=== PATIENT | male | born 2000 | race Caucasian/White ===

== ENCOUNTER 2023-07-26 15:58 | Inpatient (IN) | payer OTHER, SELFPAY ==
--- NOTE | 2023-07-26 16:16 | MHC.CARE ---
[facility] called reporting they are sending Marcelino to [facility] on a section 12. Patient was assessed and meets inpatient level of care currently, patient has been harming self via cutting with a razor, he has been significantly depressed and stated ?I want to cut my heart out of my body?. Patient has a history of depression and trauma. [facility] will send assessment to CARE team when completed.
[2023-07-26 16:22] VITALS: BP 126/76; PULSE 87; RESP 18; TEMP 37.1; O2SAT 96; BMI 20.9
[2023-07-26 16:31] VITALS: BP 126/76; PULSE 87; RESP 18; TEMP 37.1; O2SAT 96
[2023-07-26 16:42] LABS: Amphetamine Screen Urine Not Detected (Not Detect); Barbiturates, Urine Not Detected (Not Detect); Benzodiazepines Screen Urine Not Detected (Not Detect); Buprenorphine Scr Not Detected (Not Detect); Cannabinoid Screen Urine Not Detected (Not Detect); Cocaine Screen Urine Not Detected (Not Detect); Fentanyl, urine Not Detected (Not Detect); Methadone Screen, Urine Not Detected (Not Detect); Opiate Screen Urine Not Detected (Not Detect); Oxycodone Screen Urine Not Detected (Not Detect); Phencyclidine Screen Urine Not Detected (Not Detect)
[2023-07-26 16:56] LABS: Appearance Urine Clear; Color Urine Yellow; Glucose Urine UA Negative (Negative); Leukocyte Esterase Urine Negative (Negative); Nitrite Urine Negative (Negative); PH 6.5 (5.0-9.0); Specific Gravity - Urine 1.015 (1.005-1.025); Urine Blood Negative (Negative); Urine Ketones Negative (Negative); Urine Protein Trace mg/dL (Neg-Trace)
[2023-07-26 17:29] LABS: MANUAL DIFF FLAG NO
[2023-07-26 17:30] LABS: Basophils Percent Auto 0.4 % (0-2); Eosinophils Absolute Auto 0.2 X10*3/uL (0.0-0.4); Eosinophils Percent Auto 1.8 % (0-4); Hematocrit 43.4 % (42.0-52.0); Hemoglobin 15.2 g/dl (14.0-18.0); Imm Gran Abs Auto 0.06 X10*3/uL (0.00-0.03); Imm Gran Pct Auto 0.6 % (0.0-0.4); Lymphocytes Absolute Auto 1.8 X10*3/uL (1.2-4.9); Lymphocytes Percent Auto 19.2 % (20-40); Mean Corpuscular Hemoglobin 29.7 pg (27.0-33.0); Mean Corpuscular Volume 84.8 fL (80.0-98.0); Mean Platelet Volume 10.7 fL (9.4-12.4); Monocytes Absolute Auto 0.6 X10*3/uL (0.1-1.2); Monocytes Percent Auto 6.4 % (2-11); Neutrophils Absolute Auto 6.6 x10*3/uL (2.0-8.3); Neutrophils Percent Auto 71.6 % (45-73); Platelet Count 211 X10*3/uL (160-400); Red Blood Count 5.12 X10*6/uL (4.60-5.80); Red Cell Distribution Width 12.1 % (11.0-16.0); White Blood Count 9.3 X10*3/uL (4.8-10.8)
[2023-07-26 17:43] LABS: COVID-19 Test Negative (Negative); IDNOW Serial# 152EDE1D
[2023-07-26 18:06] LABS: Alanine Aminotransferase 12 U/L (0-40); Albumin Level 3.8 g/dL (3.5-5.0); Alkaline Phosphatase 71 U/L (39-117); Anion Gap 10 (12-20); Aspartate Amino Transferase 11 U/L (5-37); Bilirubin Total 0.7 mg/dL (0.0-1.0); Blood Urea Nitrogen 10 mg/dL (9-16); Calcium 9.6 mg/dL (8.4-10.2); Carbon Dioxide 29 mmol/L (22-29); Chloride 106 mmol/L (96-108); Creatinine Clr Calc Pharmacy 134.3; Estimated Glomerular Filt Rate > 60; Ethanol < 10 mg/dL; Glucose Random 77 mg/dL (60-115); Potassium 4.3 mmol/L (3.3-5.1); Sodium 141 mmol/L (135-145); Total Protein 7.1 g/dL (6.5-8.0)
--- NOTE | 2023-07-26 18:09 | ED.PSYCH ---
HPI - Psych General Chief Complaint: Psychiatric Symptoms Stated Complaint: suicidal thoughts Time Seen by Provider: 07/26/23 16:42 Source: patient and RN notes reviewed Mode of arrival: ambulatory Limitations: no limitations History of Present Illness HPI Narrative: This is a 23-year-old male, with a history of bipolar disorder, who presents emergency department with complaints of intermittent suicidal ideations with plans to cut himself. Patient states that this afternoon he lacerated himself with a razor on his right arm. He denies any homicidal ideations. Patient denies auditory or visual hallucinations. States that he has been taking all his medications at home as directed. He states that he smokes marijuana, no other drug use. No alcohol use. He sees [facility] for counseling and psychiatric medications. He has not been psychiatrically admitted to a hospital as he states that he recently relocated from [place]. He states that he is feeling well, no physical complaints, no fevers, chills, chest pain, shortness of breath, abdominal pain, nausea, vomiting or diarrhea. No other complaints or concerns at this time. MD complaint: feels depressed Onset (ago): hour(s) History of same: No Relieving factors: none Exacerbating factors: none Associated psychiatric symptoms: depression and suicidal ideation Associated symptoms: denies other symptoms Treatments prior to arrival: none If self harm: admits thoughts of self harm, has acted on plan and self-inflicted trauma Related Data Home Medications ?Medication ?Instructions ?Recorded ?Confirmed paliperidone palmitate 234 mg/1.5 234 mg IM Q3W 07/26/23 07/26/23 mL intramuscular syringe (Invega Sustenna) Allergies Allergy/AdvReac Type Severity Reaction Status Date / Time No Known Allergies Allergy Verified 07/26/23 16:29 Review of Systems Review of Systems: Yes all other systems are reviewed and are negative Constitutional: Constitutional: Reports as per [facility] Past Medical History Attestation statement: The following information was validated with the patient. Social History Social History Alcohol intake: never Smoked in Last 30 Days: No Use of substances other than those prescribed or required for medical reasons: Yes Substance Use Type: Marijuana Substance Use Frequency: Occasionally Last Used Substance: Unknown Any prior treatment program specific to substance use: No Advance Directives: No Advance Directives Information Provided: No Physical Exam Vital Signs: Vital Signs: Last Vital Signs Temp 98.8 F 07/26/23 16:31 Pulse 87 07/26/23 16:31 Resp 18 07/26/23 16:31 BP 126/76 07/26/23 16:31 Pulse Ox 96 07/26/23 16:31 O2 Del Method Room Air 07/26/23 16:31 BMI result Body Mass Index 20.9 Const: General: cooperative, comfortable and no acute distress Orientation/consciousness: patient oriented x3 Limitations: no limitations HEENT: Head: Yes normal to inspection, Yes normocephalic and Yes atraumatic Ears: hearing grossly normal bilaterally General nose exam: Normal external nose present Face and sinus: Yes normal facial exam Mouth: Normal oral and palatal mucosa present, oropharynx normal and moist mucous membranes Throat: Yes posterior oropharynx normal Eyes: General: appearance normal, both eyes and all related structures Eyelids: Yes eyelids normal Conjunctivae: conjunctivae normal Sclerae: sclerae normal Pupils: Equal, round and reactive pupils present EOM: EOMs intact bilaterally Neck: Neck: Yes normal visual inspection, Yes full ROM and Yes no lymphadenopathy Lymphatic: no lymphadenopathy noted Chest: Chest palpation & inspection: normal inspection of the chest Resp: Effort & Inspection: normal respiratory effort and able to speak in complete sentences Auscultation: clear to auscultation bilaterally, no crackles, no rales, no rhonchi and no wheezes Cardio: Rate: regular rate Rhythm: regular rhythm Heart sounds: S1 normal heart sound present and S2 normal heart sound present GI: Inspection: Yes normal to inspection Skin: General skin exam: no rashes or lesions noted Trauma: no lacerations or abrasions Wounds: no wounds Neuro: General: patient oriented x3 and moves all extremities Cranial nerves: Yes Equal, round and reactive pupils present Extrem: Other: Superficial linear abrasions noted to right forearm, no bleeding, surrounding erythema or warmth. General: Yes normal to inspection Right upper extremity: normal to inspection Left upper extremity: normal to inspection Right lower extremity: normal to inspection Left lower extremity: normal to inspection Medications Administered Discontinued Medications Generic Name Dose Route Start Last Admin Trade Name Freq PRN Reason Stop Dose Admin Melatonin 3 mg 07/26/23 21:24 07/26/23 22:46 Melatonin 3 Mg Tablet PO 04/21/24 21:25 3 mg ONCE ONE Administration Medical Decision Making Medical Decision Making [facility] Narrative: This is a 23-year-old male, with a history of bipolar disorder, who presents emergency department with complaints of suicidal ideation and self-inflicted superficial lacerations noted to the right forearm. Patient states that he is struggled with his bipolar despite taking his medications. He states that he has had thoughts of suicidal ideations with plans of self-harm. On examination, patient avoids eye contact, he has superficial abrasions noted to the right forearm, no surrounding erythema, warmth, does not require any wound closure. Labs were performed, patient has no leukocytosis, stable H&H, chemistry within normal limits. Urine does not appear to be infected. Negative drug screen, negative COVID. Given suicidal ideations with self-inflicted superficial wounds to the right forearm, will obtain care pain consult. At this point, patient is medically cleared, physician observation initiated. Differential Diagnosis Differential Diagnoses: The differential diagnosis associated with the presentation includes Depression, anxiety, suicidal ideations, homicidal ideations. Admission/Observation Consideration of admission/observation: Escalation of care including admission/observation considered Escalation of care including admission/observation considered however given workup today not warranted at this time. Lab Data MDM Lab Attestation statement: I reviewed the patient's lab results. No leukocytosis, stable H&H, chemistry within normal limits, urine does not appear to be infected, urine drug screen negative. COVID negative. 07/26/23 17:23 07/26/23 17:23 Labs: Lab Results 07/26/23 07/26/23 Range/Units 16:21 17:23 WBC 9.3 (4.8-10.8) X10*3/uL RBC 5.12 (4.60-5.80) X10*6/uL Hgb 15.2 (14.0-18.0) g/dl Hct 43.4 (42.0-52.0) % MCV 84.8 (80.0-98.0) fL MCH 29.7 (27.0-33.0) pg MCHC 35.0 (31.0-36.0) g/dl RDW 12.1 (11.0-16.0) % Plt Count 211 (160-400) X10*3/uL MPV 10.7 (9.4-12.4) fL Immature Gran % (Auto) 0.6 H (0.0-0.4) % Neut % (Auto) 71.6 (45-73) % Lymph % (Auto) 19.2 L (20-40) % [place] % (Auto) 6.4 (2-11) % Eos % (Auto) 1.8 (0-4) % Baso % (Auto) 0.4 (0-2) % Lymph # (Auto) 1.8 (1.2-4.9) X10*3/uL [place] # (Auto) 0.6 (0.1-1.2) X10*3/uL Eos # (Auto) 0.2 (0.0-0.4) X10*3/uL Baso # (Auto) 0.0 (0.0-0.2) X10*3/uL Abs Immat Gran (auto) 0.06 H (0.00-0.03) X10*3/uL Absolute Neuts (auto) 6.6 (2.0-8.3) x10*3/uL Absolute Nucleated RBC 0.000 (0.0-0.012) X10*3/uL Nucleated RBC % (auto) 0.0 (0.0-0.2) /100WBC Sodium 141 (135-145) mmol/L Potassium 4.3 (3.3-5.1) mmol/L Chloride 106 (96-108) mmol/L Carbon Dioxide 29 (22-29) mmol/L Anion Gap 10 L (12-20) BUN 10 (9-16) mg/dL Creatinine 0.83 (0.5-1.4) mg/dL Estim Creat Clear Calc 134.3 Estimated GFR > 60 Random Glucose 77 (60-115) mg/dL Calcium 9.6 (8.4-10.2) mg/dL Total Bilirubin 0.7 (0.0-1.0) mg/dL AST 11 (5-37) U/L ALT 12 (0-40) U/L Alkaline Phosphatase 71 (39-117) U/L Total Protein 7.1 (6.5-8.0) g/dL Albumin 3.8 (3.5-5.0) g/dL Urine Color Yellow Urine Appearance Clear Urine pH 6.5 (5.0-9.0) Ur Specific [place] 1.015 (1.005-1.025) Urine Protein Trace (Neg-Trace) mg/dL Urine Glucose (UA) Negative (Negative) mg/dL Urine Ketones Negative (Negative) mg/dL Urine Blood Negative (Negative) Urine Nitrite Negative (Negative) Ur Leukocyte Esterase Negative (Negative) Urine Opiates Screen Not Detected (Not Detect) Ur Buprenorphine Scrn Not Detected (Not Detect) ng/mL Ur Oxycodone Screen Not Detected (Not Detect) ng/mL Urine Methadone Screen Not Detected (Not Detect) ng/mL Urine Fentanyl Screen Not Detected (Not Detect) Ur Barbiturates Screen Not Detected (Not Detect) Ur Phencyclidine Scrn Not Detected (Not Detect) Ur Amphetamines Screen Not Detected (Not Detect) U Benzodiazepines Scrn Not Detected (Not Detect) Urine Cocaine Screen Not Detected (Not Detect) U Marijuana (THC) Screen Not Detected (Not Detect) Ethyl Alcohol < 10 mg/dL COVID-19 (LAY) Negative (Negative) COVID-19 Clin Com See Note Discharge Plan Discharge Clinical Impression: Bipolar disorder Patient Disposition: Still a Patient Prescriptions: No Action Invega Sustenna 234 mg/1.5 mL syringe 234 mg IM Q3W Interventions: [place]-Suicide Risk Severity Scale Last Done: 07/26/23 16:30 Print Language: Armenian
--- NOTE | 2023-07-26 19:20 | PC.NURSE ---
patient appears to remain relaxed on the whole at present requested to shower which t/w allowed client to access personal care products distributed by staff, patient appears in no distress.
--- NOTE | 2023-07-26 20:28 | PC.NURSE ---
patient up and about, requesting to use phone.
[2023-07-26] MEDS: Melatonin 3 MG TABLET PO (22:46)
--- NOTE | 2023-07-27 | ECG_ITS ---
Test Reason : check qt interval Blood Pressure : / mmHG Vent. Rate : 074 BPM Atrial Rate : 074 BPM P-R Int : 144 ms QRS Dur : 082 ms QT Int : 394 ms P-R-T Axes : 029 078 049 degrees QTc Int : 437 ms Normal sinus rhythm Normal ECG No previous ECGs available Referred By: Cortney Uriostegui Electronically Signed By:SHIRIN MUNIZ MD
[2023-07-27 04:45] VITALS: BP 105/57; PULSE 91; RESP 16; TEMP 36.7; O2SAT 98
[2023-07-27 11:26] VITALS: BP 135/75; PULSE 79; RESP 16; TEMP 36.8; O2SAT 95
[2023-07-27 12:40] VITALS: BP 141/80; PULSE 97; RESP 16; TEMP 37.2; O2SAT 97
--- NOTE | 2023-07-27 17:23 | PC.NURSE ---
pt refuses NRT and Flu shot
--- NOTE | 2023-07-27 17:34 | PC.ADMIT ---
Pt arrived on the unit @ 12:35 on a CV. Safety search performed, vitals obtained, menu completed and pt oriented to the unit. Pt is guarded, restless, preoccupied by internal stimuli. Eye contact is poor and speech is monotone and difficult to understand at times. Pt responding in one-two word answers during assessment. Pt reports racing thoughts, poor [id number], lack of employment and difficulty staying in a relationship as precipitating factors to Si. Pt has self inflicted superficial cuts to right forearm which are healing. 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 Pt reprots his next injection is due 07/29/23 although, unconfirmed by staff. Pt denies current ETOH use and does have history of marijuana consumption, last use just prior to admission. Pt denies current SI/Hi and presents as depressed and anxious. When asked about AH pt reports I'm not sure if theyre' voices, or my own, or just racing thoughts . Pt reports he can come to staff for urges of self harm and placed on 15min checks for safety.
[2023-07-27 20:00] VITALS: BP 190/85; PULSE 76; RESP 14; TEMP 37.2; O2SAT 97
[2023-07-27] MEDS: Melatonin 3 MG TABLET PO (22:50)
--- NOTE | 2023-07-28 07:08 | PHA.MEDREC ---
Pharmacy Consult ? Medication Reconciliation Pharmacy has reviewed the medication reconciliation done by nursing.
[2023-07-28 08:31] LABS: Estimated Average Glucose 100 mg/dL; Hemoglobin A1c % 5.1 % (<6.0)
[2023-07-28 08:44] LABS: Cholesterol 144 mg/dL (<200); HDL Cholesterol 44 mg/dL (>40); LDL Cholesterol Calculated 84 mg/dL (<100); Magnesium 1.9 mg/dL (1.6-2.6); Triglycerides 84 mg/dL (<150)
[2023-07-28 09:00] LABS: Free T4 (Free Thyroxine) 0.89 ng/dL (0.71-1.85); Thyroid Stimulating Hormone 0.96 uIU/mL (0.32-4.0)
[2023-07-28 09:14] LABS: Folate 8.1 ng/mL (> or = 4.0); Vitamin B12 368 pg/mL (200-900)
--- NOTE | 2023-07-28 10:01 | P.HPPS_ITS ---
HPI Date of Service: 07/28/23 Chief Complaint: bipolar disorder Sources of Information: patient interviewed, chart reviewed and crisis/core team assessment reviewed HPI Subjective Notes: Nielson Warning and Conditional Voluntary Narrative: Patient is a 23-year-old male with history bipolar disorder ( psychotic illness?), on Invega Sustenna presents for worsening symptoms, superficial cuts on his right arm with SI and plans to cut himself. On the unit, patient poor historian, keeping his eyes closed and not want to talk to internal communications writer; he says he is tired but was willing to answer a few questions and denies any SI, denies any AVH and says he is just tired. He agrees to getting Invega Sustenna 234 mg.Denies drug use and UDS negative. In ED patient noted to be responding to internal stimuli, reticent and reporting racing thoughts. Regarding AH he said not sure if they are voices or my own or just racing thoughts. Past Psychiatric History: Past psychiatric admissions Medical Evaluation Reviewed: Yes Superficial lacerations right forearm ?superficial abrasions noted to the right forearm, no surrounding erythema, warmth, does not require any wound closure.? 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[employer] History: Denies other than cannabis Trauma History: Deferred Diagnostics Vital Signs (24Hr): Vital Signs - 24 hr 07/27/23 11:26 07/27/23 12:40 07/27/23 20:00 Temperature 98.3 F 98.9 F 98.9 F Pulse Rate 79 97 76 Respiratory Rate 16 16 14 Blood Pressure 135/75 141/80 H 190/85 H Pulse Oximetry 95 97 97 Oxygen Delivery Method Room Air Room Air Room Air BMI result Body Mass Index 20.9 Labs 07/26/23 17:23 07/26/23 17:23 Labs: Laboratory Results - last 48 hr 07/26/23 07/26/23 07/28/23 16:21 17:23 08:10 WBC 9.3 RBC 5.12 Hgb 15.2 Hct 43.4 MCV 84.8 MCH 29.7 MCHC 35.0 RDW 12.1 Plt Count 211 MPV 10.7 Immature Gran % (Auto) 0.6 H Neut % (Auto) 71.6 Lymph % (Auto) 19.2 L [place] % (Auto) 6.4 Eos % (Auto) 1.8 Baso % (Auto) 0.4 Lymph # (Auto) 1.8 [place] # (Auto) 0.6 Eos # (Auto) 0.2 Baso # (Auto) 0.0 Abs Immat Gran (auto) 0.06 H Absolute Neuts (auto) 6.6 Absolute Nucleated RBC 0.000 Nucleated RBC % (auto) 0.0 Sodium 141 Potassium 4.3 Chloride 106 Carbon Dioxide 29 Anion Gap 10 L BUN 10 Creatinine 0.83 Estim Creat Clear Calc 134.3 Estimated GFR > 60 Random Glucose 77 Estimat Average Glucose 100 Hemoglobin A1c % 5.1 Calcium 9.6 Magnesium 1.9 Total Bilirubin 0.7 AST 11 ALT 12 Alkaline Phosphatase 71 Total Protein 7.1 Albumin 3.8 Triglycerides 84 Cholesterol 144 LDL Cholesterol, Calc 84 HDL Cholesterol 44 Vitamin B12 368 Folate 8.1 TSH 0.96 Free T4 0.89 Urine Color Yellow Urine Appearance Clear Urine pH 6.5 Ur Specific [place] 1.015 Urine Protein Trace Urine Glucose (UA) Negative Urine Ketones Negative Urine Blood Negative Urine Nitrite Negative Ur Leukocyte Esterase Negative Urine Opiates Screen Not Detected Ur Buprenorphine Scrn Not Detected Ur Oxycodone Screen Not Detected Urine Methadone Screen Not Detected Urine Fentanyl Screen Not Detected Ur Barbiturates Screen Not Detected Ur Phencyclidine Scrn Not Detected Ur Amphetamines Screen Not Detected U Benzodiazepines Scrn Not Detected Urine Cocaine Screen Not Detected U Marijuana (THC) Screen Not Detected Ethyl Alcohol < 10 COVID-19 (LAY) Negative COVID-19 Clin Com See Note Meds/Allergies Meds Home Medications ?Medication ?Instructions ?Recorded ?Confirmed ?Type paliperidone palmitate 234 mg/1.5 234 mg IM Q3W 07/26/23 07/26/23 History mL intramuscular syringe (Invega Sustenna) Allergies Allergies Allergy/AdvReac Type Severity Reaction Status Date / Time No Known Allergies Allergy Verified 07/26/23 16:29 Mental Status Exam Mental Status Exam Narrative: Pt is alert and oriented; behavior is Uncooperative, calm, tired; atient is not in distress; dressed in hospital attire, adequately groomed; mood is described as anxious; no eye contact keeping eyes closed; Speech is few with one-word answers; psychomotor retardation present; thought process goal directed, possibly distracted; Thought content not disclosed; can not assess delusional thinking; denies any SI/HI. Currently Denies AVH but did endorse them recently and does appear internally preoccupied. Patients insight and judgment impaired Assessment & Plan Assessment & Plan (1) Bipolar disorder: Status: Acute Code(s): F31.9 - Bipolar disorder, unspecified Plan Patient is a 23-year-old male with history bipolar disorder ( psychotic illness?), on Invega Sustenna presents for worsening symptoms, superficial cuts on his right arm with SI and plans to cut himself. On the unit, patient poor historian, keeping his eyes closed and not want to talk to internal communications writer; he says he is tired but was willing to answer a few questions and denies any SI, denies any AVH and says he is just tired. He agrees to getting Invega Sustenna 234 mg.Denies drug use and UDS negative. In ED patient noted to be responding to internal stimuli, reticent and reporting racing thoughts. Regarding AH he said not sure if they are voices or my own or just racing thoughts. Formulation: Patient has reported bipolar disorder, possibly schizoaffective disorder and reportedly has been taking Invega Sustenna which is due for next injection tomorrow. Collateral provided thus far reports patient consistent with long-acting injectable Not sure the precipitant of worsening symptoms and will consider the possible need for bridge medication in-between LAYNE. Will need collateral Plan, CV Q 15 minute checks Invega Sustenna 234mg due 07/29/2023 Patient educated on: diagnosis and medication risk/benefits Informed Consent: understands and further education needed Reason for continued inpatient stay Substantial Risk for: rapid decompensation Statement Statement: I have reviewed the history and physical and performed a pertinent examination on my patient. No changes have occurred unless specified. If the History and Physical was not performed prior to admission, the Hospitalist's service will be consulted for completing the admission physical. Time Spent With Patient Time: Total time managing care of this patient today ____ minutes.
--- NOTE | 2023-07-28 14:05 | PC.NURSE ---
pt signed a release of information for [employer]. Spoke w/ Jerrica Orlando (nursing @ [facility]) who verified pt is due for Invega Sustena IM injection 234mg on 07/29/23. Jerrica reports pt receives injection Q3W. Provider KAYCE made aware.
[2023-07-28] MEDS: Milk of Magnesia 30 ML ORAL.SUSP PO (14:58)
[2023-07-28 20:00] VITALS: BP 135/63; PULSE 93; RESP 16; TEMP 36.2; O2SAT 97
[2023-07-28] MEDS: Docusate Sodium 100 MG CAPSULE PO (22:06)
[2023-07-28] MEDS: Melatonin 3 MG TABLET PO (22:07)
--- NOTE | 2023-07-28 22:24 | PC.NURSE ---
Pt submitted a Three Day Notice on Thursday 07/27 up on Sunday 07/30.
[2023-07-29 08:00] VITALS: BP 87/51; PULSE 60; TEMP 36.8; O2SAT 97
[2023-07-29] MEDS: Docusate Sodium 100 MG CAPSULE PO (09:27)
[2023-07-29] MEDS: Paliperidone Palmitate 234 MG/1.5 ML SYRINGE IM (10:56)
[2023-07-29 20:00] VITALS: BP 124/67; PULSE 59; RESP 18; TEMP 36.9; O2SAT 100
--- NOTE | 2023-07-29 21:12 | P.PNPSI_ITS ---
Subjective Subjective Date of Service: 07/29/23 Reason For Visit: bipolar disorder Interim History: met with patient; discussed with team pt said he's feeling better; no SI, no AVH Says he's not sure why he was having trouble other than feeling overwhelmed by various things. pt says he feels that he might do better if Invega Sustenna was given more frequently, however does not want pills, saying he can't remember to take them. Pt asks for help getting ahold of his DDS worker; says he's struggling at [employer] since he can't always keep up with the information. Mental Status Exam Mental Status Exam Narrative: Pt is alert and oriented; behavior is cooperative, friendly, anxious; patient is not in distress; dressed in casual attire with adequate hygiene; mood is described as ok and affect anxious; eye contact appropriate; Speech is normal rate, volume and prosody and not pressured; no psychomotor agitation/retardation present; thought process is organized and goal directed; Thought content is on struggles with job; otherwise pertinent to relevant topics and without any delusional content, paranoid ideations or grandiosity; denies any SI/HI. There is no evidence of perceptual disturbance and denies AVH. Patients insight and judgment appear intact. Diagnostics Vital Signs (24Hr): Vital Signs - 24 hr 07/29/23 08:00 Temperature 98.2 F Pulse Rate 60 Blood Pressure 87/51 L Pulse Oximetry 97 Oxygen Delivery Method Room Air BMI result Body Mass Index 20.9 Labs 07/26/23 17:23 07/26/23 17:23 Labs: Laboratory Results - last 48 hr 07/28/23 08:10 Estimat Average Glucose 100 Hemoglobin A1c % 5.1 Magnesium 1.9 Triglycerides 84 Cholesterol 144 LDL Cholesterol, Calc 84 HDL Cholesterol 44 Vitamin B12 368 Folate 8.1 TSH 0.96 Free T4 0.89 Medications Medications Current Medications Acetaminophen (Acetaminophen 325 Mg Tablet) 650 mg PO Q6H PRN PRN Reason: Headache/Pain Mild Scale (1-3) Al Hydroxide/Mg Hydroxide (Magnesium Hydrox/Alum Hydrox 30 Ml Oral.Susp) 30 ml PO Q6H PRN PRN Reason: Heartburn/Nausea Docusate Sodium (Docusate Sodium 100 Mg Capsule) 100 mg PO BID PRN PRN Reason: Constipation Last Admin: 07/29/23 09:27 Dose: 100 mg Hydroxyzine HCl (Hydroxyzine Hcl 25 Mg Tablet) 25 mg PO Q6H PRN PRN Reason: Anxiety Magnesium Hydroxide (Milk Of Magnesia 30 Ml Oral.Susp) 30 ml PO DAILY PRN PRN Reason: Constipation Last Admin: 07/28/23 14:58 Dose: 30 ml Melatonin (Melatonin 3 Mg Tablet) 3 mg PO BEDTIME [facility] Last Admin: 07/28/23 22:07 Dose: 3 mg Paliperidone Palmitate (Paliperidone Palmitate 234 Mg/1.5 Ml Syringe) 234 mg IM Q30D [facility] Last Admin: 07/29/23 10:56 Dose: 234 mg Trazodone HCl (Trazodone Hcl 50 Mg Tablet) 50 mg PO BEDTIME MRX1 PRN PRN Reason: Insomnia Allergies Allergies Allergy/AdvReac Type Severity Reaction Status Date / Time No Known Allergies Allergy Verified 07/26/23 16:29 Assessment & Plan Assessment & Plan (1) Bipolar disorder: Status: Acute Code(s): F31.9 - Bipolar disorder, unspecified Plan Patient is a 23-year-old male with history bipolar disorder ( psychotic illness?), on Invega Sustenna presents for worsening symptoms, superficial cuts on his right arm with SI and plans to cut himself. On the unit, patient poor historian, keeping his eyes closed and not want to talk to sheet writer; he says he is tired but was willing to answer a few questions and denies any SI, denies any AVH and says he is just tired. He agrees to getting Invega Sustenna 234 mg.Denies drug use and UDS negative. In ED patient noted to be responding to internal stimuli, reticent and reporting racing thoughts. Regarding AH he said not sure if they are voices or my own or just racing thoughts. Formulation: Patient has reported bipolar disorder, possibly schizoaffective disorder and reportedly has been taking Invega Sustenna which is due for next injection tomorrow. Collateral provided thus far reports patient consistent with long-acting injectable Not sure the precipitant of worsening symptoms and will consider the possible need for bridge medication in-between LAYNE. Will need collateral Hospital course: 07/28 pt reports he's feeling better and he is organized in speech and behavior; 3 day notice and wants to get back to work. Seems to have returned to baseline Plan, 3 day Q 15 minute checks received Invega Sustenna 234mg on 07/29/2023 Patient educated on: diagnosis, medication risk/benefits and therapeutic strategies Informed Consent: understands Reason for continued inpatient stay Substantial Risk for: stable for discharge Time Spent With Patient Time: Total time managing care of this patient today ____ minutes.
[2023-07-29] MEDS: Melatonin 3 MG TABLET PO (21:21)
[2023-07-30 08:00] VITALS: BP 128/58; PULSE 64; RESP 20; TEMP 36.5; O2SAT 97
--- NOTE | 2023-07-30 09:04 | P.PNPSI_ITS ---
Subjective Subjective Date of Service: 07/30/23 Reason For Visit: bipolar disorder Interim History: met with patient; discussed with team pt feeling better; no AVH, no SI. He is ready to return home and was relieved to know he can get accommodations at [facility], anxious he cannot keep up otherwise. Pt talked about struggles with maintaining attention but does not take pills and has never tried stimulant medication. Mental Status Exam Mental Status Exam Narrative: Pt is alert and oriented; behavior is cooperative, friendly, anxious; patient is not in distress; dressed in casual attire with adequate hygiene; mood is described as ok and affect anxious; eye contact appropriate; Speech is normal rate, volume and prosody and not pressured; no psychomotor agitation/retardation present; thought process is organized and goal directed; Thought content is on struggles with job; otherwise pertinent to relevant topics and without any delusional content, paranoid ideations or grandiosity; denies any SI/HI. There is no evidence of perceptual disturbance and denies AVH. Patients insight and judgment appear intact. Diagnostics Vital Signs (24Hr): Vital Signs - 24 hr 07/29/23 20:00 07/30/23 08:00 Temperature 98.4 F 97.7 F Pulse Rate 59 64 Respiratory Rate 18 20 Blood Pressure 124/67 128/58 L Pulse Oximetry 100 97 Oxygen Delivery Method Room Air Room Air BMI result Body Mass Index 20.9 Labs 07/26/23 17:23 07/26/23 17:23 Labs: Laboratory Results - last 48 hr 07/28/23 08:10 Vitamin B12 368 Folate 8.1 Medications Medications Current Medications Acetaminophen (Acetaminophen 325 Mg Tablet) 650 mg PO Q6H PRN PRN Reason: Headache/Pain Mild Scale (1-3) Al Hydroxide/Mg Hydroxide (Magnesium Hydrox/Alum Hydrox 30 Ml Oral.Susp) 30 ml PO Q6H PRN PRN Reason: Heartburn/Nausea Docusate Sodium (Docusate Sodium 100 Mg Capsule) 100 mg PO BID PRN PRN Reason: Constipation Last Admin: 07/29/23 09:27 Dose: 100 mg Hydroxyzine HCl (Hydroxyzine Hcl 25 Mg Tablet) 25 mg PO Q6H PRN PRN Reason: Anxiety Magnesium Hydroxide (Milk Of Magnesia 30 Ml Oral.Susp) 30 ml PO DAILY PRN PRN Reason: Constipation Last Admin: 07/28/23 14:58 Dose: 30 ml Melatonin (Melatonin 3 Mg Tablet) 3 mg PO BEDTIME [facility] Last Admin: 07/29/23 21:21 Dose: 3 mg Paliperidone Palmitate (Paliperidone Palmitate 234 Mg/1.5 Ml Syringe) 234 mg IM Q30D [facility] Last Admin: 07/29/23 10:56 Dose: 234 mg Trazodone HCl (Trazodone Hcl 50 Mg Tablet) 50 mg PO BEDTIME MRX1 PRN PRN Reason: Insomnia Allergies Allergies Allergy/AdvReac Type Severity Reaction Status Date / Time No Known Allergies Allergy Verified 07/26/23 16:29 Assessment & Plan Assessment & Plan (1) Bipolar disorder: Status: Acute Code(s): F31.9 - Bipolar disorder, unspecified Plan Patient is a 23-year-old male with history bipolar disorder ( psychotic illness?), on Invega Sustenna presents for worsening symptoms, superficial cuts on his right arm with SI and plans to cut himself. On the unit, patient poor historian, keeping his eyes closed and not want to talk to blog writer; he says he is tired but was willing to answer a few questions and denies any SI, denies any AVH and says he is just tired. He agrees to getting Invega Sustenna 234 mg.Denies drug use and UDS negative. In ED patient noted to be responding to internal stimuli, reticent and reporting racing thoughts. Regarding AH he said not sure if they are voices or my own or just racing thoughts. Formulation: Patient has reported bipolar disorder, possibly schizoaffective disorder and reportedly has been taking Invega Sustenna which is due for next injection tomorrow. Collateral provided thus far reports patient consistent with long-acting injectable Not sure the precipitant of worsening symptoms and will consider the possible need for bridge medication in-between [facility]. Will need collateral Hospital course: 07/28 pt reports he's feeling better and he is organized in speech and behavior; 3 day notice and wants to get back to work. Seems to have returned to baseline 07/29 pt stable, baseline and appropriate for dc Plan, 3 day Q 15 minute checks received Invega Sustenna 234mg on 07/29/2023 Patient educated on: diagnosis, medication risk/benefits and therapeutic strategies Informed Consent: understands Reason for continued inpatient stay Substantial Risk for: stable for discharge Time Spent With Patient Time: Total time managing care of this patient today ____ minutes.
[2023-07-30] MEDS: hydrOXYzine HCL 25 MG TABLET PO (13:25)
[2023-07-30] MEDS: Docusate Sodium 100 MG CAPSULE PO (13:25)
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
--- NOTE | 2023-07-30 18:27 | PM.PSYDC ---
DS: Providers Provider Date of Service: 07/31/23 Date of admission: 07/27/23 11:08 Date of discharge: 07/31/23 Primary care physician: Unknown Physician Attending physician on admission: Iam Leija Attending physician on discharge: Iam Leija DS: Diagnosis Discharge Diagnosis (1) Bipolar disorder: Status: Acute DS: Medications Discharge Medications Home Medications: Home Medications ?Medication ?Instructions ?Recorded ?Confirmed paliperidone palmitate 234 mg/1.5 234 mg IM Q3W 07/26/23 07/26/23 mL intramuscular syringe (Invega Sustenna) Mental Status Exam Mental Status Exam Narrative: Pt is alert and oriented; behavior is cooperative, friendly, anxious; patient is not in distress; dressed in casual attire with adequate hygiene; mood is described as ok and affect anxious; eye contact appropriate; Speech is normal rate, volume and prosody and not pressured; no psychomotor agitation/retardation present; thought process is organized and goal directed; Thought content is on struggles with job; otherwise pertinent to relevant topics and without any delusional content, paranoid ideations or grandiosity; denies any SI/HI. There is no evidence of perceptual disturbance and denies AVH. Patients insight and judgment appear intact. Data Data Completed and Pending Completed studies during hospitalization [Text1]: 07/26/23 07/26/23 07/28/23 16:21 17:23 08:10 WBC 9.3 RBC 5.12 Hgb 15.2 Hct 43.4 MCV 84.8 MCH 29.7 MCHC 35.0 RDW 12.1 Plt Count 211 MPV 10.7 Immature Gran % (Auto) 0.6 H Neut % (Auto) 71.6 Lymph % (Auto) 19.2 L [place] % (Auto) 6.4 Eos % (Auto) 1.8 Baso % (Auto) 0.4 Lymph # (Auto) 1.8 [place] # (Auto) 0.6 Eos # (Auto) 0.2 Baso # (Auto) 0.0 Abs Immat Gran (auto) 0.06 H Absolute Neuts (auto) 6.6 Absolute Nucleated RBC 0.000 Nucleated RBC % (auto) 0.0 Sodium 141 Potassium 4.3 Chloride 106 Carbon Dioxide 29 Anion Gap 10 L BUN 10 Creatinine 0.83 Estim Creat Clear Calc 134.3 Estimated GFR > 60 Random Glucose 77 Estimat Average Glucose 100 Hemoglobin A1c % 5.1 Calcium 9.6 Magnesium 1.9 Total Bilirubin 0.7 AST 11 ALT 12 Alkaline Phosphatase 71 Total Protein 7.1 Albumin 3.8 Triglycerides 84 Cholesterol 144 LDL Cholesterol, Calc 84 HDL Cholesterol 44 Vitamin B12 368 Folate 8.1 TSH 0.96 Free T4 0.89 Urine Color Yellow Urine Appearance Clear Urine pH 6.5 Ur Specific [place] 1.015 Urine Protein Trace Urine Glucose (UA) Negative Urine Ketones Negative Urine Blood Negative Urine Nitrite Negative Ur Leukocyte Esterase Negative Urine Opiates Screen Not Detected Ur Buprenorphine Scrn Not Detected Ur Oxycodone Screen Not Detected Urine Methadone Screen Not Detected Urine Fentanyl Screen Not Detected Ur Barbiturates Screen Not Detected Ur Phencyclidine Scrn Not Detected Ur Amphetamines Screen Not Detected U Benzodiazepines Scrn Not Detected Urine Cocaine Screen Not Detected U Marijuana (THC) Screen Not Detected Ethyl Alcohol < 10 COVID-19 (LAY) Negative COVID-19 Clin Com See Note DS: Summary Hospital Course Hospital Course: Patient is a 23-year-old male with history bipolar disorder ( psychotic illness?), on Invega Sustenna presents for worsening symptoms, superficial cuts on his right arm with SI and plans to cut himself. On the unit, patient poor historian, keeping his eyes closed and not want to talk to marketing writer; he says he is tired but was willing to answer a few questions and denies any SI, denies any AVH and says he is just tired. He agrees to getting Invega Sustenna 234 mg.Denies drug use and UDS negative. In ED patient noted to be responding to internal stimuli, reticent and reporting racing thoughts. Regarding AH he said not sure if they are voices or my own or just racing thoughts. Formulation: Patient has reported bipolar disorder, possibly schizoaffective disorder and reportedly has been taking Invega Sustenna which is due for next injection tomorrow. Collateral provided thus far reports patient consistent with long-acting injectable Not sure the precipitant of worsening symptoms and will consider the possible need for bridge medication in-between LAYNE. Will need collateral Hospital course: 07/28 pt reports he's feeling better and he is organized in speech and behavior; 3 day notice and wants to get back to work. Seems to have returned to baseline 07/29 pt stable, not in imminent risk for harm to self or others. Patient at baseline and appropriate for dc Time spent discussing smoking cessation with patient: 3 to 10 minutes Status at Discharge Functional status at discharge: independent ambulation Overall status at discharge: patient is back to baseline Time Spent with Patient Time attestation: Total time managing care of this patient today ____ minutes. Time spent: Less than 30 minutes Discharge Plan Discharge Anticipated Discharge Date/Time: 07/31/23 11:30 Patient Disposition: Home, Self-Care Discharge Diagnosis: bipolar disorder Referrals: [facility]- Jerrica Calabrese (Therapy) [Other] - 08/05/23 11:00 am (Please arrive 15 minutes early to complete intake paperwork ) [facility]- Red Everett (Medication Provider) [Other] - 08/17/23 3:20 pm Physician,Stephen J [Primary Care Provider] - 1 Week Discharge Medications: Continued Invega Sustenna 234 mg/1.5 mL syringe 234 mg IM Q3W Discharge Orders: Discharge Order (Routine); Ordered 07/31/23 Ordered By: Iam Leija Diet: Regular diet Activity on Discharge: As tolerated Stand Alone Forms: Patient Portal Discharge page Print Language: Welsh Care Plan Goals: Maintain mood and safe behaviors Take medications as prescribed Continue to pursue sobriety Practice coping skills Continue with outpatient providers and reach out to them as needed Health Concerns: Mood stability and behaviors Plan of Treatment: Follow up with your PCP, psychiatric provider and other outpatient providers regarding above concerns Take medications as prescribed Assessment: Risk assessment at time of discharge:? Patient was interviewed prior to discharge and found to be fully oriented and without any SI or HI. Patient has improved insight and judgment and wants to continue treatment. Patient is not in imminent risk of harm to self or others and has a safety plan that includes presenting to the closest ER or calling 911 if feeling unsafe.? Patient has been observed closely by nursing and unit staff throughout admission; patient has not engaged in any behaviors that suggest dangerousness to self or others and has demonstrated appropriate behaviors and impulse control Discharge Date/Time: 07/31/23 11:05
[2023-07-30 20:00] VITALS: BP 152/82; PULSE 124; RESP 18; TEMP 36.9; O2SAT 98
[2023-07-30] MEDS: Melatonin 3 MG TABLET PO (20:51)
[2023-07-31 08:00] VITALS: RESP 18
== END 2023-07-31 11:05 | disposition home or self-care (01) | DRG 753 ==
LOC: HO.ED 18:24 → HO.PM5 07-27 11:13
PROVIDERS: Admitting Provider Clinical Nurse Specialist Psychiatric/Mental Health, Adult; Emergency Provider Internal Medicine; Visit Provider Psychiatry & Neurology Psychiatry
DX: F31.9 Bipolar disorder, unspecified (principal); R45.851 Suicidal ideations; Z20.822 Contact with and (suspected) exposure to COVID-19; Z79.899 Other long term (current) drug therapy; Z87.891 Personal history of nicotine dependence
CPT/HCPCS: 36415; 80053; 80061; 80307; 81003; 82607; 82746; 83036; 83735; 84439; 84443; 85025; 87635; 93005; 99285; J2426

== ENCOUNTER 2023-07-27 11:08 | Outpatient (BNV) | payer OTHER, SELFPAY | END 2023-07-27 11:17 | PROVIDERS: Admitting Provider Clinical Nurse Specialist Psychiatric/Mental Health, Adult; Emergency Provider Internal Medicine; Visit Provider Internal Medicine Cardiovascular Disease | DX: R45.851 Suicidal ideations (principal) | CPT/HCPCS: 93010 ==

== ENCOUNTER → 2023-07-27 11:08 | Outpatient (BNV) | payer OTHER, SELFPAY | PROVIDERS: Admitting Provider Clinical Nurse Specialist Psychiatric/Mental Health, Adult; Emergency Provider Internal Medicine; Visit Provider Psychiatry & Neurology Psychiatry | DX: F31.63 Bipolar disorder, current episode mixed, severe, without psychotic features (principal) | CPT/HCPCS: 90792; 99231; 99232; 99238 ==